=== PATIENT | female | born 1935 | race American Indian/Alaskan Native ===

== ENCOUNTER 2018-03-13 08:15 | Day surgery (SDC) | payer MEDICARE, BC ==
[2018-03-11 17:33] VITALS: BMI 18.9
[2018-03-13] MEDS ORDERED: Propofol 10 mg/ml Inj (20 ML) ONE ×2 (10:22→10:55)
[2018-03-13] MEDS ORDERED: Etomidate 20 mg/10ml Inj IV ONE (10:36)
[2018-03-13] MEDS ORDERED: Sodium Chloride 0.9% 1,000 ML IV SCH (11:15)
[2018-03-13 12:36] VITALS: RESP 19; TEMP 97.2; O2SAT 100
[2018-03-13 12:38] VITALS: PULSE 59
[2018-03-13 12:39] VITALS: BP 153/68
== END 2018-03-13 13:14 | disposition home or self-care (01) ==
LOC: ENDO 08:15
PROVIDERS: ATTEND Internal Medicine Gastroenterology
DX: D50.9 Iron deficiency anemia, unspecified (principal); D12.0 Benign neoplasm of cecum; K31.819 Angiodysplasia of stomach and duodenum without bleeding; K57.30 Diverticulosis of large intestine without perforation or abscess without bleeding; K64.8 Other hemorrhoids; E11.9 Type 2 diabetes mellitus without complications; I10 Essential (primary) hypertension; E78.00 Pure hypercholesterolemia, unspecified
CPT/HCPCS: 43255; 45381; 45385; 82948; 88305; J2001; J2704; J7030